=== PATIENT | female | born 1990 | race African-American/Black ===

== ENCOUNTER 2022-05-26 12:56 | Emergency (ER) | payer SELFPAY ==
[2022-05-26] MEDS ORDERED: Bicillin LA 1.2 MILLION UNITS/2 ML SYRINGE ONE (14:26)
== END 2022-05-26 14:45 | disposition home or self-care (01) ==
LOC: CSHERS 12:56
DX: J02.9 Acute pharyngitis, unspecified (principal); Z20.822 Contact with and (suspected) exposure to COVID-19
CPT/HCPCS: 87430; 87804; J0561; U0003; U0005

== ENCOUNTER 2022-05-27 03:30 | Emergency (ER) | payer SELFPAY ==
[2022-05-27] MEDS ORDERED: cefTRIAXone\\ROCEPHIN 2 GM VIAL ONE (04:32)
[2022-05-27] MEDS ORDERED: Dexamethasone 10 MG/ML VIAL ONE (04:32)
[2022-05-27] MEDS ORDERED: Ketorolac Tromethamine 30 MG/ML VIAL ONE (04:32)
[2022-05-27] MEDS ORDERED: Iopamidol 300 61% 100 ML VIAL FS ONE (14:06)
== END 2022-05-27 05:50 | disposition home or self-care (01) ==
LOC: CSHERS 03:30
DX: J03.90 Acute tonsillitis, unspecified (principal); J02.9 Acute pharyngitis, unspecified
CPT/HCPCS: 70491; 96374; 96375; J0696; J1100; J1885; Q9967

== ENCOUNTER 2022-08-02 16:40 | Emergency (ER) | payer SELFPAY ==
[2022-08-02] MEDS ORDERED: EPINEPHrine 1 MG/ML AMP ONE (17:29)
== END 2022-08-02 17:49 | disposition home or self-care (01) ==
LOC: CSHERS 16:40
DX: L50.0 Allergic urticaria (principal)
CPT/HCPCS: 96372; 99283; J0171

== ENCOUNTER 2023-01-03 08:53 | Emergency (ER) | payer SELFPAY ==
[2023-01-03] MEDS ORDERED: Dexamethasone 10 MG/ML VIAL ONE (09:50)
[2023-01-03] MEDS ORDERED: Ketorolac Tromethamine 30 MG/ML VIAL ONE (10:14)
[2023-01-03 10:43] LABS: SARS-CoV-2 NAA Rapid Test Not Detected (NotDetected)
== END 2023-01-03 11:09 | disposition home or self-care (01) ==
LOC: CSHERS 08:53
DX: B34.9 Viral infection, unspecified (principal); J02.9 Acute pharyngitis, unspecified; Z20.822 Contact with and (suspected) exposure to COVID-19
CPT/HCPCS: 71045; 87081; 87430; 96372; J1100; J1885

== ENCOUNTER 2023-04-28 17:51 | Emergency (ER) | payer SELFPAY ==
[2023-04-28 18:52] LABS: Bilirubin Neg (Negative); Blood, Urine 50 (Negative); Glucose, Urine (Dipstick) Normal (Negative); Ketone, Urine Negative (Negative); Leukocyte 500 (Negative); Nitrite Negative (Negative); Protein, Urine (Dipstick) Negative (Neg-Trace); Specific Gravity, Urine 1.025 (1.005-1.030); Urobilinogen Normal mg/dL (Less than 2)
[2023-04-28 18:54] LABS: Clarity Clear (Clear); Pregnancy Test - Urine (BHCG) Negative (Negative); Pregu Control Background? CLEAR/WHITE (CLR/WHITE); Pregu Control Bar Appear? YES (CONTROL BAR); Specific Gravity 1.025 (1.002-1.036)
[2023-04-28 19:26] LABS: Bacteria/HPF 3+ HPF (None Seen); CAUTI Indications for Culture Dysuria,urgency,freq; Mucous/LPF 2+ LPF (<2+); RBC/HPF 0-3 HPF (0-3); Squamous Epithelial 0-3 HPF (0-3); Urine Culture Reflex Yes Yes
[2023-04-28] MEDS ORDERED: metroNIDAZOLE 500 MG TAB ONE (20:37)
[2023-04-28] MEDS ORDERED: Nitrofurantoin Monohyd/M-Cryst 100 MG CAP PO SCH (20:45)
[2023-04-29 12:51] LABS: Chlam.trachomatis by PCR,Urine Not Detected (NotDetected); GC N.gonorrhoeae PCR,UrineVOID Not Detected (NotDetected)
== END 2023-04-28 20:29 | disposition home or self-care (01) ==
LOC: CSHERS 17:51
DX: N39.0 Urinary tract infection, site not specified (principal); N76.0 Acute vaginitis; F17.210 Nicotine dependence, cigarettes, uncomplicated
CPT/HCPCS: 81001; 81025; 87086; 87480; 87491; 87510; 87591; 87660; 99283

== ENCOUNTER 2024-11-05 19:34 | Emergency (ER) | payer SELFPAY ==
[2024-11-05] MEDS ORDERED: Ketorolac Tromethamine 30 MG (1 mL) VIAL ONE (20:19)
[2024-11-05 20:20] LABS: #Basophils 0.07 10x3/uL (0.0-0.2); #Monocytes 0.99 10x3/uL (0.0-1.1); %Basophils 0.5 % (0.0-2.0); %Eosinophils 0.7 % (0.0-6.0); %Lymphocytes 19.6 % (18.0-47.0); %Monocytes 7.4 % (0.0-10.0); %Neutrophils 71.4 % (40.0-75.0); Hematocrit 36.4 % (34.9-44.5); Hemoglobin 12.6 g/dL (12.0-15.5); Mean Corpuscular HGB CONC 34.6 g/dL (32.0-36.0); Mean Corpuscular Hemoglobin 27.5 pg (27.0-33.0); Mean Corpuscular Volume 79.5 fL (81.6-98.3); Mean Platelet Volume 10.5 fL (7.4-10.4); Platelet Count 271 10x3/uL (150-450); RBC Distribution Width 13.5 % (11.5-14.5); Red Blood Cell (RBC) Count 4.58 10x6/uL (3.90-5.03); White Blood Cell (WBC) Count 13.5 10x3/uL (3.5-10.5)
[2024-11-05 20:32] LABS: BHCG - Serum Negative (NEGATIVE); Pregs Control Background? CLEAR/WHITE (CLR/WHITE); Pregs Control Bar Appear? YES (CONTROL BAR)
[2024-11-05 20:39] LABS: ALT (SGPT) 27 U/L (8-55); AST (SGOT) 27 U/L (5-34); Albumin 3.4 g/dL (3.5-5.0); Alkaline Phosphatase 56 U/L (40-110); Anion Gap 13 mmol/L (10-20); BUN (Urea Nitrogen) 7 mg/dL (7.0-18.7); Bilirubin, Total 0.3 mg/dL (0.2-1.2); CK (CPK) 186 U/L (29-168); Calc. Creatinine Clearance 0 mL/min (70-130); Calcium 8.9 mg/dL (7.8-10.44); Carbon Dioxide 19 mmol/L (22-29); Chloride 105 mmol/L (98-107); Estimated GFR 102; Globulin 4.1 g/dL (2.4-3.5); Glucose 109 mg/dL (70-105); Magnesium 1.8 mg/dL (1.6-2.6); Potassium 3.5 mmol/L (3.5-5.1); Protein, Total 7.5 g/dL (6.0-8.3); Sodium 133 mmol/L (136-145)
== END 2024-11-05 21:55 | disposition home or self-care (01) ==
LOC: CSHERS 19:34
DX: J06.9 Acute upper respiratory infection, unspecified (principal); R50.9 Fever, unspecified
CPT/HCPCS: 80053; 82550; 83735; 84703; 85025; 87428; 96374; J1885